=== PATIENT | female | born 1995 | race African-American/Black ===

== ENCOUNTER 2016-07-30 19:59 | Emergency (ER) | payer SELFPAY ==
--- NOTE | 2016-07-30 21:11 | PICIS ---
[facility] EMERGENCY RECORD TRIAGE (20:16 CHOB) TRIAGE NOTES: PT BOYFRIEND THINKS HE HAS SCABIES AND PT WANTS CHECKED FOR SCABIES. PT HAS NO COMPLAINTS AT THIS TIME. (20:16 CHOB) PATIENT: NAME: Lam Orozco, AGE: 21, GENDER: female, : Sun 1995, TIME OF GREET: Radha Jul 30, 2016 19:59, PREFERRED LANGUAGE: Italian, ETHNICITY: Not or , ECODE BILLING MAP: [facility], SSN: [id number], Zip Code: [address], KG WEIGHT: 55.79 (est.), PHONE: CELL, , , PERSON ID: [id number], PAYMENT: [employer] Self Pay, PCP: FRANKIE Schaefer Kimberly. (20:16 CHOB) COMPLAINT: WANTS CHECKED FOR SCABIES, NO SPECIFIC COMPLAINTS. (20:16 CHOB) ADMISSION: URGENCY: 5 Fast Track, ADMISSION SOURCE: Home, TRANSPORT: CAR, BED: ER -02. (20:16 CHOB) ASSESSMENT: Assessment: NO SKIN ALTERATIONS NOTED. NO C/C VOICED OR NOTED. NO DISTRESS NOTED. NO ACUTAL SX VOICED BY PATIENT, PT STATES SHE IS HERE "PRECAUTIONARY I THINK I'VE BEEN EXPOSED TO SCABIES IN THE LAST WEEK.". (20:29 CHOB) PAIN: No complaint of pain. (20:29 CHOB) SIRS SCORING: Heart Rate 55-109 (0), Temp range 96.8-101.1 (0), respiratory rate 12-24 (0), Mental Status altered: no (0), Infection or Suspected Infection: No. (20:29 CHOB) TRIAGE SCREENING: Patient denies suicidal ideation, Patient denies presence of domestic violence. (20:29 CHOB) LMP: Last menstrual period: 07/07/2016. (20:29 CHOB) PROVIDERS: TRIAGE NURSE: Ciara Winkler RN. (20:16 CHOB) VITAL SIGNS: BP 102/62, Pulse 77, (Regular), Resp 17, (Non-Labored), Temp 97.4, (Oral), Pain 0, O2 Sat 100, on Room Air, Time 07/30/2016 20:14. (20:14 CHOB) PREVIOUS VISIT ALLERGIES: No Known Drug Allergies. (20:16 CHOB) No Known Drug Allergies. (20:29 CHOB) KNOWN ALLERGIES No Known Drug Allergies CURRENT MEDICATIONS PROZAC: DOSE UNKNOWN. (20:50 CHOB) SEROQUEL: DOSE UNKNOWN. (20:51 CHOB) VITAL SIGNS VITAL SIGNS: BP: 102/62, Pulse: 77 (Regular), Resp: 17 (Non-Labored), Temp: 97.4 (Oral), Pain: 0, O2 sat: 100 on Room Air, Time: 07/30/2016 20:14. (20:14 CHOB) BP: 106/64, Pulse: 72, Resp: 18, Temp: 97.2, Pain: 0, O2 sat: 99 on RA, Time: 07/30/2016 20:42. (20:42 CHOB) NURSING ASSESSMENT: HEAD-TO-TOE (20:16 CHOB) CONSTITUTIONAL: Complex assessment performed, Patient arrives ambulatory, Gait steady, History obtained from patient, Patient &a-1R&a+25V*p+0X*[id number]*c202B*c15G*c2P*p-0X&a-25V&a+1R Name: Lam Orozco : 1995 F21 MedRec: [id number] AcctNum: [id number] Prepared: [facility] Jul 30, 2016 21:05 by Interface Page 1 of 5 pMD [facility] EMERGENCY RECORD appears comfortable, Patient cooperative, Patient alert, Oriented to person, place and time, Skin warm, Skin dry, Skin normal in color, Mucous membranes pink, Mucous membranes moist, Patient is well-groomed, Patient complains of NO COMPLAINTS, SCABIES EXPOSURE AND WANTS CHECKED. DENIES AT ITCHING OR ANY OTHER C/C AT THIS TIME. SKIN: Skin assessment findings include skin warm, Skin dry, Skin normal in color, Notes: SKIN WARM, DRY WITH NO ALTERATIONS NOTED. NEURO: Pupils equally round and reactive to light, Left pupil 3 mm in size, Right pupil 3 mm in size, Able to close eyes, Face symmetrical, Speech normal, GCS:, Eye opening: (4) - Spontaneous, Verbal: (5) - Oriented/conversive, Motor: (6) - Obeys commands/Spontaneous, GCS Total: 15, Hand grasps equal, Upper extremity strength strong, Lower extremity strength strong, Foot press equal. EYES: Eye assessment findings include orbits normal, Eye lids normal, Conjunctiva normal, Sclera normal, Cornea clear, Iris normal, Pupils equally round and reactive to light. ENT: Ear assessment findings include ear normal to inspection, Nasal assessment findings include nose normal to inspection, Sinuses normal, Nasal mucosa normal, Mouth and throat assessment findings include mouth inspection normal, Uvula normal, Tonsils normal, Mucous membranes pink, and moist, Able to swallow, Speech normal. NECK: Neck assessment findings include trachea midline. RESPIRATORY/CHEST: Breath sounds clear, Respiratory assessment findings include respiratory effort easy, Respirations regular, Conversing normally, Neck and chest exam findings include trachea midline, Chest expansion equal, Chest movement symmetrical. CARDIOVASCULAR: Cardiovascular assessment findings include heart rate normal, Heart sounds normal, S1, S2. ABDOMEN: Abdomen assessment findings include abdomen symmetrical, Abdomen soft, non-tender. LEFT UPPER EXTREMITY: Left upper extremity assessment findings include capillary refill less than 2 seconds, Skin color normal to hand, Skin temperature to hand warm, Distal sensation intact, Muscle tone normal. RIGHT UPPER EXTREMITY: Right upper extremity assessment findings include capillary refill less than 2 seconds, Skin color normal to hand, Skin temperature to hand warm, Distal sensation intact, Muscle tone normal. LEFT LOWER EXTREMITY: Left lower extremity assessment findings include capillary refill less than 2 seconds, Skin color normal, Skin temperature warm, Distal sensation intact, Muscle tone normal. RIGHT LOWER EXTREMITY: Right lower extremity assessment findings include capillary refill less than 2 seconds, Skin color normal, Skin temperature warm, Distal sensation intact, Muscle tone normal. PSYCH/SOCIAL: Psychiatric/social assessment findings include affect normal. SAFETY: Side rails up, Cart/Stretcher in lowest position, Call light within reach, Hospital ID band on. &a-1R&a+25V*p+0X*[id number]*c202B*c15G*c2P*p-0X&a-25V&a+1R Name: Lam Orozco : 1995 F21 MedRec: [id number] AcctNum: [id number] Prepared: Radha Jul 30, 2016 21:05 by Interface Page 2 of 5 pMD [facility] EMERGENCY RECORD NURSING PROCEDURE: DISCHARGE NOTE (20:42 CHOB) DISCHARGE: Patient discharged to home, ambulating without assistance, driving self, accompanied by //partner, Patient requested and was provided an electronic copy of Discharge Instructions, Discharge instructions given to patient, Simple or moderate discharge teaching performed, by LOVE VERAS, Prescriptions given and instructions on side effects given, Name of prescription(s) given: PERMETHRIN, Above person(s) verbalized understanding of discharge instructions and follow-up care, Notes: PT EDUCATED ON PERMETHERIN USE/APPLICATION AND EDUCATED ON HOME TREATMENT FOR SCABIES WITH VERBAL UNDERSTANDING. BELONGINGS: Belongings and valuables with patient at time of discharge include:, Belongings remain with patient. SAFETY: Side rails up, Cart/Stretcher in lowest position, Call light within reach, Hospital ID band on. VITAL SIGNS: BP: 106, / 64, Pulse: 72, Resp: 18, Temp: 97.2, Pain: 0, O2 sat: 99, on: RA. HPI GENERAL (20:35 JPIP) CHIEF COMPLAINT: Patient presents for evaluation of Patient has no complaints, her boyfriends son was diagnosed with scabies and she wants to be "checked out". HISTORIAN: History provided by patient. MECHANISM OF INJURY: Mechanism of injury: scabies exposure. LOCATION: No localizing symptoms. ASSOCIATED WITH: No associated symptoms. ROS (20:36 JPIP) SKIN: Historian denies pruritis, denies rash, denies skin changes, denies skin lesions. NOTES: All systems reviewed, negative except as described above. PAST MEDICAL HISTORY MEDICAL HISTORY: No past medical history, Flu vaccine not up to date, Tetanus not up to date, Pneumococcal vaccine not up to date, Flu vaccine not up to date, Tetanus immunization up to date, Pneumococcal vaccine not up to date, Past medical history includes pulmonary disease, asthma. (20:29 CHOB) FEMALE SURGICAL HISTORY: Patient has no surgical history, Patient has no surgical history. (20:29 CHOB) PSYCHIATRIC HISTORY: Psychiatric history includes, depression. REVIEWED 07/30/16. (20:29 CHOB) SOCIAL HISTORY: PT DENIES ETOH USE, VOICES HX OF MARIJUANA USE, Patient currently uses tobacco, smokes cigarettes, 1/4 PK/DAY. REVIEWED 07/30/16. (20:29 CHOB) NOTES: Nursing records reviewed, Medication list reviewed. (20:37 JPIP) &a-1R&a+25V*p+0X*[id number]*c202B*c15G*c2P*p-0X&a-25V&a+1R Name: Lam Orozco : 1995 F21 MedRec: [id number] AcctNum: [id number] Prepared: WedJul 30, 2016 21:05 by Interface Page 3 of 5 pMD [facility] EMERGENCY RECORD PHYSICAL EXAM (20:37 JPIP) CONSTITUTIONAL: Vital signs reviewed, Patient afebrile, Pulse normal, Blood pressure normal, Respiratory rate normal, Patient appears non toxic, Patient appears pain free, Patient alert and oriented to person, place and time. HEAD: Head exam included findings of head atraumatic, normocephalic. EYES: Eye exam included findings of eyelids normal to inspection, Conjunctiva normal, Sclera normal, no periorbital ecchymosis, no periorbital edema, no periorbital erythema. RESPIRATORY CHEST: Respiratory exam included findings of no respiratory distress. UPPER EXTREMITY: Upper extremity exam included findings of inspection normal, Range of motion normal. LOWER EXTREMITY: Lower extremity exam included findings of inspection normal, Range of motion normal. NEURO: [place]ya coma scale 15, Speech normal, no focal motor deficits. SKIN: Skin exam included findings of skin warm, dry, and normal in color, no rash, no lesions, no rashes, nl skin. PSYCHIATRIC: Psychiatric exam included findings of patient oriented to person place and time, Normal affect. EVENTS TRANSFER: Triage to Emergency Emergency Room -02. (WedJul 30, 2016 20:16 CHOB) Removed from Emergency Emergency Room -02. (20:49 CHOB) O2SAT INTERPRETATION (20:38 JPIP) O2SAT: Single pulse oximetry, Oxygen saturation 100%, on room air, Oxygen saturation interpretation: Normal, No intervention required. PROBLEM LIST No recorded problems DIAGNOSIS (20:30 JPIP) FINAL: PRIMARY: scabies exposure. DISPOSITION PATIENT: Disposition Type: Discharge, Disposition: *Discharge Home, Condition: Good. (20:30 JPIP) Patient left the department. (20:49 CHOB) INSTRUCTION (20:30 JPIP) DISCHARGE: SCABIES. [facility] [address] [address], . SPECIAL: Follow up with Primary Care Physician within 72 hours Return to the Emergency Department for increased symptoms problems or &a-1R&a+25V*p+0X*[id number]*c202B*c15G*c2P*p-0X&a-25V&a+1R Name: Lam Orozco : 1995 F21 MedRec: [id number] AcctNum: [id number] Prepared: WedJul 30, 2016 21:05 by Interface Page 4 of 5 pMD [facility] EMERGENCY RECORD concerns If you start itching you can use Benadryl or atarax. PRESCRIPTION (20:29 JPIP) permethrin: CREAM (GRAM) : 5 % : TOPICAL : Quantity: * Unit: tiffanie Route: TOPICAL Schedule: See Notes Dispense: 60 gms May substitute. Refills: No Refills . NOTES: at bed time, apply from the neck down to your feet, leave on overnight and shower off in the morning No refills. Genao: MARY=LOVE Winkler Christina JPIP=DO Anaya Joseph &a-1R&a+25V*p+0X*[id number]*c202B*c15G*c2P*p-0X&a-25V&a+1R Name: Lam Orozco : 1995 F21 MedRec: [id number] AcctNum: [id number] Prepared: WedJul 30, 2016 21:05 by Interface Page 5 of 5 pMD MTDD
--- NOTE | 2016-07-30 21:11 | ERRECORD ---
[facility] EMERGENCY RECORD HPI GENERAL (20:35 JPIP) CHIEF COMPLAINT: Patient presents for evaluation of Patient has no complaints, her boyfriends son was diagnosed with scabies and she wants to be "checked out". HISTORIAN: History provided by patient. MECHANISM OF INJURY: Mechanism of injury: scabies exposure. LOCATION: No localizing symptoms. ASSOCIATED WITH: No associated symptoms. ROS (20:36 JPIP) SKIN: Historian denies pruritis, denies rash, denies skin changes, denies skin lesions. NOTES: All systems reviewed, negative except as described above. PAST MEDICAL HISTORY MEDICAL HISTORY: No past medical history, Flu vaccine not up to date, Tetanus not up to date, Pneumococcal vaccine not up to date, Flu vaccine not up to date, Tetanus immunization up to date, Pneumococcal vaccine not up to date, Past medical history includes pulmonary disease, asthma. (20:29 CHOB) FEMALE SURGICAL HISTORY: Patient has no surgical history, Patient has no surgical history. (20:29 CHOB) PSYCHIATRIC HISTORY: Psychiatric history includes, depression. REVIEWED 07/30/16. (20:29 CHOB) SOCIAL HISTORY: PT DENIES ETOH USE, VOICES HX OF MARIJUANA USE, Patient currently uses tobacco, smokes cigarettes, 1/4 PK/DAY. REVIEWED 07/30/16. (20:29 CHOB) NOTES: Nursing records reviewed, Medication list reviewed. (20:37 JPIP) KNOWN ALLERGIES No Known Drug Allergies CURRENT MEDICATIONS PROZAC: DOSE UNKNOWN. (20:50 CHOB) SEROQUEL: DOSE UNKNOWN. (20:51 CHOB) VITAL SIGNS VITAL SIGNS: BP: 102/62, Pulse: 77 (Regular), Resp: 17 (Non-Labored), Temp: 97.4 (Oral), Pain: 0, O2 sat: 100 on Room Air, Time: 07/30/2016 20:14. (20:14 CHOB) BP: 106/64, Pulse: 72, Resp: 18, Temp: 97.2, Pain: 0, O2 sat: 99 on RA, Time: 07/30/2016 20:42. (20:42 CHOB) PHYSICAL EXAM (20:37 JPIP) CONSTITUTIONAL: Vital signs reviewed, Patient afebrile, Pulse normal, Blood pressure normal, Respiratory rate normal, Patient appears non toxic, Patient appears pain free, Patient alert and oriented to person, place and time. &a-1R&a+25V*p+0X*o6218V*c202B*c15G*c2P*p-0X&a-25V&a+1R Name: Lam Orozco : 1995 F21 MedRec: [id number] AcctNum: [id number] Prepared: [facility] Jul 30, 2016 20:57 by Interface Page 1 of 2 pMD [facility] EMERGENCY RECORD HEAD: Head exam included findings of head atraumatic, normocephalic. EYES: Eye exam included findings of eyelids normal to inspection, Conjunctiva normal, Sclera normal, no periorbital ecchymosis, no periorbital edema, no periorbital erythema. RESPIRATORY CHEST: Respiratory exam included findings of no respiratory distress. UPPER EXTREMITY: Upper extremity exam included findings of inspection normal, Range of motion normal. LOWER EXTREMITY: Lower extremity exam included findings of inspection normal, Range of motion normal. NEURO: [place] coma scale 15, Speech normal, no focal motor deficits. SKIN: Skin exam included findings of skin warm, dry, and normal in color, no rash, no lesions, no rashes, nl skin. PSYCHIATRIC: Psychiatric exam included findings of patient oriented to person place and time, Normal affect. PROBLEM LIST No recorded problems DIAGNOSIS (20:30 JPIP) FINAL: PRIMARY: scabies exposure. PRESCRIPTION (20:29 JPIP) permethrin: CREAM (GRAM) : 5 % : TOPICAL : Quantity: * Unit: tiffanie Route: TOPICAL Schedule: See Notes Dispense: 60 gms May substitute. Refills: No Refills . NOTES: at bed time, apply from the neck down to your feet, leave on overnight and shower off in the morning No refills. DISPOSITION PATIENT: Disposition Type: Discharge, Disposition: *Discharge Home, Condition: Good. (20:30 JPIP) Patient left the department. (20:49 CHOB) Genao: CHOB=LOVE Winkler Christina JPIP=DO Anaya Joseph &a-1R&a+25V*p+0X*[id number]*c202B*c15G*c2P*p-0X&a-25V&a+1R Name: Ad Orozcosergio : 1995 F21 MedRec: [id number] AcctNum: [id number] Prepared: Radha Jul 30, 2016 20:57 by Interface Page 2 of 2 pMD MTDD
== END 2016-07-30 20:42 | disposition home or self-care (01) ==
LOC: BURERS 19:59
DX: Z20.7 Contact with and (suspected) exposure to pediculosis, acariasis and other infestations (principal)
CPT/HCPCS: 99283

== ENCOUNTER 2016-12-03 11:12 | Emergency (ER) | payer MEDICAID, OTHER, SELFPAY ==
[2016-12-03 12:42] LABS: Pregnancy Test - Urine (BHCG) Negative (NEGATIVE); Pregu Control Background? CLEAR/WHITE (CLR/WHITE); Pregu Control Bar Appear? YES (CONTROL BAR); Specific Gravity 1.012 (1.002-1.036)
[2016-12-04 22:22] LABS: Chlamydia by PCR DETECTED (NotDetected); GC by PCR DETECTED (NotDetected)
== END 2016-12-03 13:11 | disposition home or self-care (01) ==
LOC: BURERS 11:12
DX: Z20.2 Contact with and (suspected) exposure to infections with a predominantly sexual mode of transmission (principal); J45.909 Unspecified asthma, uncomplicated; F32.9 Major depressive disorder, single episode, unspecified; F17.210 Nicotine dependence, cigarettes, uncomplicated
CPT/HCPCS: 81025; 87480; 87491; 87510; 87591; 87660; 99283

== ENCOUNTER 2017-05-22 21:09 | Emergency (ER) | payer OTHER, SELFPAY ==
[2017-05-22] MEDS ORDERED: diphenhydrAMINE 25 MG CAP ONE (21:20)
== END 2017-05-22 22:23 | disposition home or self-care (01) ==
LOC: BURERS 21:09
DX: L29.9 Pruritus, unspecified (principal); J45.909 Unspecified asthma, uncomplicated; F32.9 Major depressive disorder, single episode, unspecified; F17.210 Nicotine dependence, cigarettes, uncomplicated
CPT/HCPCS: 99282